=== PATIENT | female | born 1950 | race African-American/Black ===

== ENCOUNTER 2023-09-23 04:03 | Day surgery (SDC) | payer OTHER ==
[2023-09-17 11:37] VITALS: BMI 23.6
[2023-09-23] MEDS ORDERED: MIDAZOLAM HCL 2 MG/2 ML SINGLE DOSE VIAL ONE (09:58)
[2023-09-23] MEDS ORDERED: PROPOFOL 20 ML ONE (09:58)
[2023-09-23] MEDS ORDERED: ACETAMINOPHEN 325 MG TABLET (FP) PO PRN (10:12)
[2023-09-23] MEDS ORDERED: IBUPROFEN 400 MG TABLET (FP) PO PRN (10:12)
[2023-09-23] MEDS ORDERED: ceFAZolin SODIUM 1 GM VIAL IVPB ONE (10:30)
[2023-09-23] MEDS ORDERED: ONDANSETRON 4 MG/2 ML VIAL IVPUSH PRN (11:04)
[2023-09-23] MEDS ORDERED: oxyCODONE HCL 5 MG TABLET PO PRN (11:04)
[2023-09-23] MEDS ORDERED: LACTATED RINGERS SOLUTION 1,000 ML IV SCH (11:15)
[2023-09-23 12:25] VITALS: RESP 18
[2023-09-23 12:48] VITALS: BP 126/66; PULSE 62; TEMP 98.6
== END 2023-09-23 13:00 | disposition home or self-care (01) ==
LOC: JASU-SURG 04:03
PROVIDERS: ATTEND Obstetrics & Gynecology
PROC: 0UB98ZZ Excision of Uterus, Via Natural or Artificial Opening Endoscopic (ICD-10-PCS; principal; 2023-09-23 09:45)
DX: D25.9 Leiomyoma of uterus, unspecified (principal); N84.1 Polyp of cervix uteri
CPT/HCPCS: 86850; 86900; 86901; 88305-TC; 94760